=== PATIENT | male | born 1955 | race Caucasian/White ===

== ENCOUNTER 2018-12-06 11:48 | Emergency (ER) | payer OTHER ==
[2018-12-06 13:21] LABS: ADD MAN DIFF? NO
[2018-12-06 13:26] LABS: WHITE BLOOD COUNT 5.4 10^3/ul (4.8-10.8)
[2018-12-06 13:26] LABS: BASOPHILS % 0.7 % (0.0-2.0); EOSINOPHILS # 0.2 10^3/ul (0.0-0.5); EOSINOPHILS % 4.3 % (0.0-7.0); HEMATOCRIT 44.7 % (42.0-52.0); HEMOGLOBIN 14.6 g/dl (14.0-18.0); LYMPHOCYTES % 36.5 % (15.0-51.0); MEAN CORPUSCULAR HEMOGLOBIN 28.6 pg (29.0-33.0); MEAN CORPUSCULAR HGB CONC 32.7 g/dl (32.0-37.0); MEAN CORPUSCULAR VOLUME 87.6 fl (82.0-101.0); MEAN PLATELET VOLUME 9.2 fl (7.4-10.4); MONOCYTE # 0.4 10^3/ul (0.3-0.9); MONOCYTES % 7.1 % (0.0-11.0); NEUTROPHIL # 2.7 10^3/ul (1.6-7.5); PLATELET COUNT 216 10^3/UL (140-415)
[2018-12-06 13:34] LABS: ALANINE AMINOTRANSFERASE 28 IU/L (13-69); ALBUMIN 4.3 g/dl (3.3-4.9); ALBUMIN/GLOBULIN RATIO 1.38; ALKALINE PHOSPHATASE 78 IU/L (42-121); ANION GAP 9 (5-13); ASPARTATE AMINO TRANSFERASE 20 IU/L (15-46); BILIRUBIN,INDIRECT 0.4 mg/dl (0-1.1); BILIRUBIN,TOTAL 0.4 mg/dl (0.2-1.3); BLOOD UREA NITROGEN 14 mg/dl (7-20); CALCIUM 9.5 mg/dl (8.4-10.2); CARBON DIOXIDE 28 mmol/L (21-31); CREATININE 0.89 mg/dl (0.61-1.24); Estimated GFR > 60 mL/min (>60); GLUCOSE 112 mg/dl (70-220); LIPASE 56 U/L (23-300); POTASSIUM 4.1 mmol/L (3.5-5.1); SODIUM 140 mmol/L (135-144); TOTAL PROTEIN 7.4 g/dl (6.1-8.1)
[2018-12-06] MEDS: ONDANSETRON 4 MG INJ IV (13:36)
[2018-12-06] MEDS: KETOROLAC 15 MG INJ IV (13:36)
[2018-12-06] MEDS: SOD CHLORIDE 0.9% 1,000 ML IV (13:36)
[2018-12-06 13:40] LABS: CHLORIDE 103 mmol/L (97-110)
[2018-12-06 13:45] LABS: TROPONIN-I < 0.012 ng/ml (0.000-0.120)
== END 2018-12-06 16:54 | disposition home or self-care (01) ==
LOC: E/R 11:48
DX: H81.13 Benign paroxysmal vertigo, bilateral (principal); I10 Essential (primary) hypertension
CPT/HCPCS: 36415; 70450; 80053; 83690; 84484; 85025; 96361; 96374; 96375; 99285-25